=== PATIENT | male | born 1970 | race Caucasian/White ===

== ENCOUNTER 2017-06-18 22:30 | Emergency (ER) | payer BC, OTHER ==
[~2017-06-18] VITALS: Ht 180.3 cm; Wt 125.0 kg
[2017-06-18 22:34] VITALS: BP 151/89
[2017-06-18] MEDS ORDERED: ATOR40TA75 (22:42)
[2017-06-18] MEDS ORDERED: FELO10TA (22:42)
[2017-06-18] MEDS ORDERED: AMOX875T2 (22:42)
[2017-06-18] MEDS ORDERED: HUMA100I3 SC (22:42)
[2017-06-18] MEDS ORDERED: NORT25CA2 (22:43)
[2017-06-19] MEDS ORDERED: IPRATROPIUM 0.5MG/ALBUTEROL 2.5MG INH SOL UD 3ML (DUONEB)(J7620) NEB ONE (00:30)
[2017-06-19] MEDS ORDERED: AZITHROMYCIN 250 MG TAB PO ONE (01:30)
[2017-06-19] MEDS ORDERED: FLON1SPR (01:31)
[2017-06-19] MEDS ORDERED: ZITHTAB PO (01:31)
--- NOTE | 2017-06-19 12:53 | REP ---
CHEST, TWO VIEWS: Two views of the chest are performed without prior studies for comparison. There appears to be some mild increased density in the left lung base behind the heart, posteriorly on the lateral view, likely representing some mild left lower lobe atelectasis/infiltrate. Right lung appears clear. Heart does not appear to be significantly enlarged. The right hilar vessels appear somewhat more prominent than the left. There are degenerative changes of the spine. IMPRESSION: Suspect mild left lower lobe atelectasis/infiltrate. Signed by Darek Vazquez MD 06/19/2017 05:36 P
== END 2017-06-19 01:46 | disposition home or self-care (01) ==
LOC: M ED 22:30
DX: J20.9 Acute bronchitis, unspecified (principal); H65.02 Acute serous otitis media, left ear; Z79.4 Long term (current) use of insulin; Z79.899 Other long term (current) drug therapy; Z88.8 Allergy status to other drugs, medicaments and biological substances

== ENCOUNTER 2018-02-21 15:59 | Emergency (ER) | payer OTHER ==
[2018-02-21] MEDS: ALBUTEROL SULFATE 2.5 MG/0.5 ML INH NEB SOLN NEB (17:31)
[2018-02-21 19:14] LABS: ANION GAP 6 MEQ/L (8-16); BLOOD UREA NITROGEN 9 MG/DL (7-18); CARBON DIOXIDE LEVEL 28 MEQ/L (21-32); CHLORIDE LEVEL 105 MEQ/L (98-107); CK-MB VALUE MASS 1.5 NG/ML (<3.6); CPK CREATINE PHOSPHOKINASE 94 U/L (39-308); CREATININE FOR GFR 0.74 MG/DL (0.70-1.30); GLOMERULAR FILTRATION RATE > 60.0 (>60); GLUCOSE, FASTING 290 MG/DL (70-100); MB/CK RELATIVE INDEX 1.59 (< OR =4); POTASSIUM SERUM 3.9 MEQ/L (3.5-5.1); SODIUM LEVEL 139 MEQ/L (136-145); TROPONIN I < 0.02 NG/ML (< 0.10)
[2018-02-21] MEDS ORDERED: ISOVUE-370 76% 100ML VIAL (Q9967) As Ordered (19:22)
== END 2018-02-21 21:10 | disposition home or self-care (01) ==
LOC: M ED 15:59
DX: J45.909 Unspecified asthma, uncomplicated (principal); E11.9 Type 2 diabetes mellitus without complications; I11.9 Hypertensive heart disease without heart failure; K75.9 Inflammatory liver disease, unspecified; Z88.8 Allergy status to other drugs, medicaments and biological substances; Z79.899 Other long term (current) drug therapy; Z79.4 Long term (current) use of insulin; Z79.84 Long term (current) use of oral hypoglycemic drugs
CPT/HCPCS: Q9967